=== PATIENT | female | born 2000 | race Caucasian/White ===

== ENCOUNTER 2025-06-07 20:08 | Emergency (ER) | payer BC ==
[2025-06-07 20:23] VITALS: TEMP 97.1
[2025-06-07 20:24] VITALS: RESP 18
--- NOTE | 2025-06-07 20:28 | ERPHSYRPT ---
- History of Present Illness Time Seen by Provider: 06/07/25 20:11 Historian: patient Exam Limitations: no limitations Patient Subjective Stated Complaint: c/o right sided abdominal pain Triage Nursing Assessment: patient brought to ED by sharif with c/o right sided lower abdominal pain. patient states that she has had on and off pain since December but today the pain got worse. she has 6/10 cramping pain, states she has had N/V/D, today, bowel sounds present in all 4 quads, afebrile, gait steady, doesn't appear to be in any distress at this time. Physician History: 25-year-old female presented in the ER with complaints of lower abdominal/right lower quadrant pain intermittently for the last few months but got worse today. Moderate intensity dull aching to sharp cramping, no aggravating or relieving factors. Associated nausea dry heaving and had couple of episodes of loose stool. Denies any urinary symptoms. Patient has been evaluated outpatient for this pain by BEAM WORKER and is scheduled for CAT scan abdomen pelvis outpatient but pain got worse and her primary care recommended to be evaluated in the ER today. No fever or chills reported. Allergies/Adverse Reactions: No Known Drug Allergies Allergy (Verified 06/07/25 20:25) Home Medications: No Reportable Medications [No Reported Medications] 06/07/25 [History] Hx Tetanus, Diphtheria Vaccination/Date Given: Yes Hx Influenza Vaccination/Date Given: No Hx Pneumococcal Vaccination/Date Given: No Travel Risk - International Travel Have you traveled outside of the country in past 3 weeks: No - Emerging Infectious Disease Are you exhibiting symptoms associated with any current EIDs: Yes Symptoms: Abdominal Pain, Diarrhea, Vomitting - Review of Systems Constitutional: No Symptoms Eyes: No Symptoms Ears, Nose, & Throat: No Symptoms Respiratory: No Symptoms Cardiac: No Symptoms Abdominal/Gastrointestinal: Abdominal Pain, Nausea, Diarrhea Genitourinary Symptoms: No Symptoms Musculoskeletal: No Symptoms Skin: No Symptoms Neurological: No Symptoms Psychological: No Symptoms Endocrine: No Symptoms Hematologic/Lymphatic: No Symptoms - Past Medical History Pertinent Past Medical History: Yes Neurological History: No Pertinent History ENT History: No Pertinent History Cardiac History: No Pertinent History Respiratory History: No Pertinent History Endocrine Medical History: No Pertinent History Musculoskeletal History: Fractures GI Medical History: No Pertinent History History: No Pertinent History Psycho-Social History: No Pertinent History Female Reproductive Disorders: No Pertinent History Other Medical History: kidney stones, left wrist fracture, one miscarriage - Past Surgical History Past Surgical History: Yes Other Surgical History: left wrist surgery - Female History Hx Last Menstrual Period: 2 weeks ago Hx Now: No - Social History Smoking Status: Never smoker Exposure to second hand smoke: Yes Drug Use: none - Social Determinants of Health Will the patient participate in the screening: Yes Do you worry about a steady place to live?: No Do you have any problems with any of the following?: No known problems In the past 12 months,have you had to go without utilities?: No Transportation Issues: No Has anyone in your support network made you feel unsafe?: No Have you or anyone in your house had to go w/o enough food: No - Nursing Vital Signs Nursing Vital Signs: Initial Vital Signs Temperature 97.1 F 06/07/25 20:11 Pulse Rate 98 H 06/07/25 20:11 Respiratory Rate 16 06/07/25 20:11 Blood Pressure 160/91 06/07/25 20:11 O2 Sat by Pulse Oximetry 100 06/07/25 20:11 Pain Scale Pain Intensity 6 - Physical Exam General Appearance: no apparent distress Eye Exam: PERRL/EOMI Ears, Nose, Throat Exam: normal ENT inspection Neck Exam: normal inspection, full range of motion Respiratory Exam: normal breath sounds, lungs clear Cardiovascular Exam: regular rate/rhythm, normal heart sounds Gastrointestinal/Abdomen Exam: soft, normal bowel sounds, tenderness (Right lower quadrant with minimal guarding but no rebound) Back Exam: normal inspection, normal range of motion, No CVA tenderness Extremity Exam: normal inspection, normal range of motion Neurologic Exam: alert, oriented x 3, cooperative Skin Exam: normal color SpO2 Interpretation: normal SpO2: 100 O2 Delivery: Room Air Ordered Tests: Active Orders 24 hr Category Date Time Status NPO (ED) STAT Care 06/07/25 20:25 Active ABDOMEN AND PELVIS W/0 CONTRAS [CT] Stat Exams 06/07/25 20:59 Taken CBC W DIFF Stat Lab 06/07/25 20:30 Completed CMP Stat Lab 06/07/25 20:30 Completed HCG QUALITATIVE, SERUM Stat Lab 06/07/25 20:30 Completed UA W/RFX UR CULTURE Stat Lab 06/07/25 20:27 Completed Medication Summary Discontinued Medications Generic Name Dose Route Start Last Admin Trade Name Nathalie PRN Reason Stop Dose Admin Ketorolac Tromethamine 30 mg 06/07/25 22:09 Ketorolac Tromethamine 30 Mg/Ml Inj IM 06/07/25 22:10 STAT ONE Lab/Rad Data: Laboratory Result Diagrams 06/07/25 20:30 06/07/25 20:30 Laboratory Results 06/07/25 06/07/25 06/07/25 Range/Units 20:30 20:30 20:30 WBC 7.3 (3.98-10.04) x10^3/uL RBC 4.50 (3.93-5.22) x10^6/uL Hgb 13.3 (11.2-15.7) g/dL Hct 39.3 (34.1-44.9) % MCV 87.3 (79.4-94.8) fL MCH 29.6 (25.6-32.2) pg MCHC 33.8 (32.2-35.5) g/dL RDW 12.4 (11.7-14.4) % Plt Count 241 (182-369) x10^3/uL MPV 9.8 (9.4-12.3) fL Gran % 69.0 (34.0-71.1) % Immature Gran % (Auto) 0.1 (0.001-0.429) % Nucleat RBC Rel Count 0.0 (0.00-0.2) % Eos # (Auto) 0.05 (0.04-0.36) x10^3/uL Immature Gran # (Auto) 0.01 (0.001-0.031) x10^3u/L Absolute Lymphs (auto) 1.77 (1.18-3.74) x10^3/uL Absolute Monos (auto) 0.37 (0.24-0.86) x10^3/uL Absolute Nucleated RBC 0.00 (0.00-0.012) x10^3u/L Lymphocytes % 24.4 (19.3-51.7) % Monocytes % 5.1 (4.7-12.5) % Eosinophils % 0.7 (0.7-5.8) % Basophils % 0.7 (0.1-1.2) % Absolute Granulocytes 5.00 (1.56-6.13) x10^3/uL Basophils # 0.05 (0.01-0.08) x10^3/uL Sodium 139 (135-145) mmol/L Potassium 3.8 (3.5-5.1) mmol/L Chloride 107 (98-107) mmol/L Carbon Dioxide 22 (22-30) mmol/L Anion Gap 13.8 (5-15) MEQ/L BUN 12 (7-17) mg/dL Creatinine 0.67 (0.52-1.04) mg/dL Estimated GFR 122.8 ML/MIN Glucose 99 (74-106) mg/dL Calcium 9.7 (8.4-10.2) mg/dL Total Bilirubin 2.10 H (0.2-1.3) mg/dL AST 24 (14-36) U/L ALT 14 (0-35) U/L Alkaline Phosphatase 54 (38-126) U/L Serum Total Protein 8.0 (6.3-8.2) g/dL Albumin 4.8 (3.5-5.0) g/dL Serum HCG, Qual NEGATIVE (NEGATIVE) Urine Color (Yellow) Urine Appearance (Clear) Urine pH (4.6-8.0) Ur Specific [place] (1.005-1.030) Urine Protein (Negative) Urine Glucose (UA) (Negative) mg/dL Urine Ketones (Negative) Urine Blood (Negative) Urine Nitrite (Negative) Urine Bilirubin (Negative) Urine Urobilinogen (0.2) mg/dL Ur Leukocyte Esterase (Negative) U Hyaline Cast (Auto) (0-2) /LPF Urine Microscopic RBC (0-5) /HPF Urine Microscopic WBC (0-5) /HPF Ur Epithelial Cells (None Seen) /HPF Urine Bacteria (None Seen) /HPF Urine Culture Reflexed (NO) 06/07/25 Range/Units 20:27 WBC (3.98-10.04) x10^3/uL RBC (3.93-5.22) x10^6/uL Hgb (11.2-15.7) g/dL Hct (34.1-44.9) % MCV (79.4-94.8) fL MCH (25.6-32.2) pg MCHC (32.2-35.5) g/dL RDW (11.7-14.4) % Plt Count (182-369) x10^3/uL MPV (9.4-12.3) fL Gran % (34.0-71.1) % Immature Gran % (Auto) (0.001-0.429) % Nucleat RBC Rel Count (0.00-0.2) % Eos # (Auto) (0.04-0.36) x10^3/uL Immature Gran # (Auto) (0.001-0.031) x10^3u/L Absolute Lymphs (auto) (1.18-3.74) x10^3/uL Absolute Monos (auto) (0.24-0.86) x10^3/uL Absolute Nucleated RBC (0.00-0.012) x10^3u/L Lymphocytes % (19.3-51.7) % Monocytes % (4.7-12.5) % Eosinophils % (0.7-5.8) % Basophils % (0.1-1.2) % Absolute Granulocytes (1.56-6.13) x10^3/uL Basophils # (0.01-0.08) x10^3/uL Sodium (135-145) mmol/L Potassium (3.5-5.1) mmol/L Chloride (98-107) mmol/L Carbon Dioxide (22-30) mmol/L Anion Gap (5-15) MEQ/L BUN (7-17) mg/dL Creatinine (0.52-1.04) mg/dL Estimated GFR ML/MIN Glucose (74-106) mg/dL Calcium (8.4-10.2) mg/dL Total Bilirubin (0.2-1.3) mg/dL AST (14-36) U/L ALT (0-35) U/L Alkaline Phosphatase (38-126) U/L Serum Total Protein (6.3-8.2) g/dL Albumin (3.5-5.0) g/dL Serum HCG, Qual (NEGATIVE) Urine Color Yellow (Yellow) Urine Appearance Clear (Clear) Urine pH 5.5 (4.6-8.0) Ur Specific [place] >=1.030 A (1.005-1.030) Urine Protein Trace A (Negative) Urine Glucose (UA) Negative (Negative) mg/dL Urine Ketones 40 A (Negative) Urine Blood Negative (Negative) Urine Nitrite Negative (Negative) Urine Bilirubin Negative (Negative) Urine Urobilinogen 1.0 A (0.2) mg/dL Ur Leukocyte Esterase Negative (Negative) U Hyaline Cast (Auto) NONE SEEN (0-2) /LPF Urine Microscopic RBC 0-2 (0-5) /HPF Urine Microscopic WBC 6-10 A (0-5) /HPF Ur Epithelial Cells Moderate A (None Seen) /HPF Urine Bacteria Few A (None Seen) /HPF Urine Culture Reflexed NO (NO) - Progress Progress: improved, pain not gone completely Progress Note: 06/07/25 22:11 Differential diagnosis: Acute appendicitis, ovarian torsion, ovarian cyst rupture, colitis, cystitis, ureterolithiasis, diverticulitis 25-year-old is evaluated in the ER for right lower quadrant pain with some cramping. She is given Toradol for symptomatic relief. Workup showed normal white count, chemistries fairly unremarkable. No UTI. CT abdomen pelvis per preliminary report is negative for acute appendicitis, does have some physiological fluid in cul-de-sac with possible cyst rupture. Patient is having off-and-on pain for quite some time. It is possible patient is developing cysts and recommended outpatient follow-up with primary care and COMPLIANCE SPECIALIST. Discussed signs symptoms of worsening return to ER which she seems understanding. Stable for discharge Complexity of problems addressed: Moderate acute Complexity of data reviewed/analyzed: Moderate to extensive Risk of complication: Low Counseled pt/family regarding: lab results, diagnosis, need for follow-up, rad results Medical Desision Making - Diagnostic Testing Diagnostic test were ordered, analyzed, and reviewed by me: Yes Radiological Interpretation: Reviewed by me, Teleradiologist Report - Risk of complications The pt has a mod risk of morbidity or mortality based on: Need for prescription drug management - Departure Departure Disposition: Home Clinical Impression: Right lower quadrant pain, Ovarian cyst rupture Condition: Stable Critical Care Time: No Referrals: DEB NOONAN NP [Primary Care Provider, UNKNOWN] - Follow up with PCP 1 day Instructions: Severe Abdominal Pain, Adult (DC) Additional Instructions: Take Tylenol/ibuprofen as needed. Follow-up with primary care for reevaluation and also with COMPLIANCE SPECIALIST. Return to ER for intractable pain/vomiting fever chills or difficulty urination etc.
[2025-06-07 20:38] LABS: BASOPHIL % 0.7 % (0.1-1.2); Basophil (Absolute #) 0.05 x10^3/uL (0.01-0.08); Eosinophil (Absolute #) 0.05 x10^3/uL (0.04-0.36); Hematocrit 39.3 % (34.1-44.9); Hemoglobin 13.3 g/dL (11.2-15.7); IMMATURE GRAN # 0.01 x10^3u/L (0.001-0.031); IMMATURE GRAN % 0.1 % (0.001-0.429); Lymphocyte (Absolute #) 1.77 x10^3/uL (1.18-3.74); Mean Corpuscular Hemoglobin 29.6 pg (25.6-32.2); Mean Corpuscular Hgb Concent. 33.8 g/dL (32.2-35.5); Monocyte (Absolute #) 0.37 x10^3/uL (0.24-0.86); NUCLEATED RBC # 0.00 x10^3u/L (0.00-0.012); NUCLEATED RBC % 0.0 % (0.00-0.2); Platelet Count 241 x10^3/uL (182-369); Red Blood Count 4.50 x10^6/uL (3.93-5.22); White Blood Count 7.3 x10^3/uL (3.98-10.04)
[2025-06-07 20:45] LABS: Glucose, Urine Negative (Negative); Protein,Urine Dip Trace (Negative); RBC 0-2 /HPF (0-5)
[2025-06-07 20:51] LABS: Calcium 9.7 mg/dL (8.4-10.2); Carbon Dioxide 22.0 mmol/L (22-30); Creatinine 1 0.67 mg/dL (0.52-1.04); EST GLOMERULAR FILTRATION RATE 122.8 ML/MIN; Glucose 99.0 mg/dL (74-106); HCG SERUM TEST NEGATIVE (NEGATIVE); Potassium 3.8 mmol/L (3.5-5.1); SGOT/AST 24.0 U/L (14-36); SGPT/ALT 14.0 U/L (0-35); Total Protein 8.0 g/dL (6.3-8.2)
[2025-06-07] MEDS ORDERED: TORAdol 30 mg Injection ONE (22:11)
[2025-06-07] MEDS: TORAdol 30 mg Injection IM ONE (22:12)
[2025-06-07 22:39] VITALS: BP 113/71; PULSE 77; O2SAT 99
--- NOTE | 2025-06-08 08:48 | XRAY ---
Indication: Right lower quadrant pain. Multiple contiguous axial images obtained through the abdomen and pelvis without contrast. Comparison: None Lung bases clear. Heart not enlarged. Noncontrasted stomach and bowel loops appear nonobstructed. Normal appendix. Tiny bilateral nephrocalcinosis, largest left mid kidney measuring 2-3 mm. Small cul-de-sac fluid presumed physiologic from ruptured/leaking cyst. No free air. Remaining liver, gallbladder, pancreas, spleen, adrenal glands, kidneys, ureters, bladder, uterus, and aorta are unremarkable for noncontrast exam. Osseous structures intact with mild levoscoliosis centered at L3. Impression: 1. Small cul-de-sac fluid presumed physiologic. 2. Chronic findings including tiny nonobstructing bilateral nephrocalcinosis and levoscoliosis. 3. Remaining CT abdomen/pelvis without contrast exam is negative.
== END 2025-06-07 22:39 | disposition home or self-care (01) ==
LOC: ED 20:08
DX: R10.31 Right lower quadrant pain (principal); N83.209 Unspecified ovarian cyst, unspecified side